=== PATIENT | male | born 1995 | race Caucasian/White ===

== ENCOUNTER 2019-05-25 22:32 | Emergency (ER) | payer OTHER, SELFPAY ==
[2019-05-25 22:33] VITALS: BP 135/82; PULSE 104; RESP 17; TEMP 36.5; O2SAT 98; BMI 26.8
--- NOTE | 2019-05-26 | EKG12_ITS ---
Test Reason : TRAUMA Blood Pressure : / mmHG Vent. Rate : 070 BPM Atrial Rate : 070 BPM P-R Int : 150 ms QRS Dur : 094 ms QT Int : 374 ms P-R-T Axes : 069 046 054 degrees QTc Int : 403 ms Normal sinus rhythm with sinus arrhythmia Normal ECG Confirmed by MATTHEW LAN, JORDAN ([id number]), scientific editor VALENCIA MILAN ([id number]) on 05/28/2019 12:27:25 PM Referred By: ANGEL Confirmed By:KASHIF CASTRO MD
--- NOTE | 2019-05-26 00:01 | CT_ITS ---
STUDY: CT CHEST WITH CONTRAST REASON FOR EXAM: Male, 23 years old. Left rib and back pain after being mauled by a bull RADIATION DOSAGE (If Supplied By Facility): CTDIvol = ( 12.09 ) mGy, DLP = ( 1152.82 ) mGycm TECHNIQUE: Transaxial 2.5 mm imaging was performed following intravenous administration of IV 100mL Isovue-370 100ML. Multiplanar coronal and sagittal images were reformatted. Individualized dose optimization techniques were used for this CT. COMPARISON: None. FINDINGS: There is no demonstrated pneumothorax, contusion or effusion. Azygos vein as a congenital variant. There is no demonstrated pleural abnormality. Normal heart and pericardium. Normal mediastinum. Normal hilar regions. Normal enhanced pulmonary arteries. Normal aorta arch and descending thoracic aorta. Normal osseous structures. Ovoid low attenuation in the anterior superior spleen measures 1.1 x 1.6 x 1 cm and near water density. CT/Chest WITH Contrast IMPRESSION: No acute vascular, parenchymal, visceral or osseous injury. Presumed left splenic cyst or hemangioma is a benign entity. No splenic laceration. Electronically Signed: Shahrzad Pringle MD at 1:37 EST , Service support ,
--- NOTE | 2019-05-26 00:02 | ED.DCSUM_ITS ---
History of Present Illness Chief Complaint: Trauma Informant: Patient Onset: Today Mechanism/Context: Assault Quality of Pain: Aching Current Severity: Moderate Maximum Severity: Severe Narrative: Patient is a 23-year-old male with no significant past medical history presenting with chest pain. Patient states he was bringing in the calf into the barn when he was attacked by a bowl. He states the ball came up from behind him. The patient tried to redirect the ball attacked by grabbing the ball by the horns and was flung into the air and into a wall. He then fell to the ground. Patient was able to crawl away. He denies hitting his head or any loss of consciousness. He was seen by his neighbor who is an ER doctor at [facility]. She recommended he come to the emergency room. He did take approximately 800 mg of ibuprofen before coming in. Patient states he feels about 3 times better than he did initially. He denies any numbness or tingling. He has significant pain on the left side of his chest and his left back. He has shortness of breath related to his chest pain. He states it hurts to take a deep breath. He denies any associated numbness or tingling. He denies any other injuries at this time. Tetanus Immunization: Unknown Past Medical History - Allergies and Home Meds Allergies/Adverse Reactions: Allergies No Known Allergies Allergy (Verified 05/25/19 22:33) Primary Care Physician: Jose Lyons MD [NON-STAFF] - Past Medical History: None Surgical History: noncontributory Smoking Status: Never smoker Review of Systems General: Denies: Chills, Fever, Sweats Eyes: Denies: Visual changes - bilaterally, Diplopia ENT: Denies: Rhinorrhea, Sore throat Cardiovascular: Reports: Chest pain. Denies: Palpitations Respiratory: Reports: Dyspnea. Denies: Cough, Dyspnea on exertion Gastrointestinal: Reports: Nausea. Denies: Abdominal pain, Vomiting, Diarrhea, Melena, Hematochezia Genitourinary: Denies: Dysuria, Hematuria, Frequency Musculoskeletal: Denies: Back pain, Extremity Pain Skin: Reports: Abrasions - back and chest . Denies: Rash, Wounds Neurological: Denies: Headache, Weakness, Numbness Physical Exam Vital Signs/Narrative: Vital Signs Temp Pulse Resp BP Pulse Ox 05/25/19 22:33 97.7 F L 104 H 17 135/82 H 98 Inital Vital Signs reviewed: Yes General: Well nourished, Well developed Head: Normocephalic, Atraumatic Eyes: Perrl, EOMI ENT: TM's clear, No hemotympanum or drainage, No trauma. Negative for: Hemotympanum, Nasal trauma, Nasal septal hematoma Neck: Nontender, Full ROM. Negative for: Spinal Tenderness, Paraspinal Tenderness Cardiovascular: Regular rate, Regular rhythm, No murmurs Respiratory: No distress, CTA bilaterally, Chest tenderness - left posterior chest, midscapular line, - - No chest wall crepitus. Negative for: Retractions Abdomen: Soft, Nontender, Nondistended, Normal bowel sounds. Negative for: Guarding Back: Nontender Extremeties: No deformity, no tenderness over the joints, normal range of motion of the shoulders and hips. Pelvis is stable Skin: Normal color, Trauma - Ecchymosis over left posterior thorax and left anterior flank, - - Ecchymosis diffusely over thoracic and lumbar back in a pattern consistent with an imprint from the floor Neurological: Alert, Oriented x3, Cranial nerves II-XII grossly intact, Normal Strength, Normal Sensation Psychological: Normal affect - Glascow Coma Scale Eye Opening: Spontaneous Motor: Obeys Commands Verbal: Oriented Coma Scale Total: 15 Diagnostic/Tx/Re-eval Clinical Impression(s) from Imaging Studies Chest CT 05/26/19 00:01 IMPRESSION: No acute vascular, parenchymal, visceral or osseous injury. Presumed left splenic cyst or hemangioma is a benign entity. No splenic laceration. Electronically Signed: Shahrzad Pringle MD at 1:37 EST , Service support , Abdomen/Pelvis CT 05/26/19 00:04 IMPRESSION: No acute vascular, parenchymal, visceral or osseous injury. Splenic lesion likely complex cyst or hemangioma. No splenic injury. Mesenteric lymph nodes possible mild mesenteric adenitis versus incidental finding. Degenerative changes. Electronically Signed: Shahrzad Pringle MD at 1:44 EST , Service support , Laboratory Data 05/26/19 05/26/19 05/26/19 00:14 00:14 01:40 WBC 10.7 RBC 5.30 Hgb 15.2 Hct 43.8 MCV 82.6 MCH 28.7 MCHC 34.7 RDW Std Deviation 35.3 RDW Coeff of [place] 11.8 Plt Count 250 MPV 10.3 Immature Gran % (Auto) 0.500 Neut % (Auto) 75.4 H Lymph % (Auto) 12.9 L [place] % (Auto) 10.4 H Eos % (Auto) 0.3 Baso % (Auto) 0.5 Absolute Neuts (auto) 8.1 H Absolute Lymphs (auto) 1.38 Nucleated RBC % 0 Sodium 142 Potassium 3.5 Chloride 110 H Carbon Dioxide 25.0 Anion Gap 7 BUN 20 H Creatinine 1.10 Estim Creat Clear Calc 107.84 Est GFR (MDRD) Af Amer 106 Est GFR (MDRD) Non-Af 88 BUN/Creatinine Ratio 18.2 Glucose 91 Calcium 9.2 Total Bilirubin 0.40 AST 33 ALT 31 Alkaline Phosphatase 71 Troponin I < 0.015 Total Protein 7.0 Albumin 4.1 Globulin 2.9 Albumin/Globulin Ratio 1.4 Urine Color Yellow Urine Clarity Clear Urine pH 6.5 Ur Specific [place] 1.015 Urine Protein Negative Urine Glucose (UA) Normal Urine Ketones Negative Urine Occult Blood Negative Urine Nitrite Negative Urine Bilirubin Negative Urine Urobilinogen Normal Ur Leukocyte Esterase Negative Urine RBC 0 SEEN Urine WBC 0 SEEN Ur Squamous Epith Cells 0-5 SEEN Urine Bacteria 0 SEEN Urine Mucus 0 SEEN - Rhythm Strip Rhythm Strip: Sinus Rhythm Rate: 70 Ectopy: None - EKG Initial EKG Interpretation: Sinus Rhythm, - - Normal sinus rhythm at a rate of 70 Normal intervals Normal axis Normal ST segments - Medical Decision Making Patient is evaluated for injuries sustained after he was attacked by a bull. Patient significant ecchymosis on his abdomen and back. He is complaining of significant shortness of breath and chest wall pain. Patient is high risk for pneumothorax, rib fracture and internal injuries due to his mechanism of injury. Because of this, trauma work-up is initiated. It is grossly negative. Patient does not even have signs of a rib fracture on his CT. Patient is hemodynamically stable. He is offered morphine but declines it. Patient is diagnosed with rib contusions. EKG and troponin are normal. Do not suspect cardiac contusion. No signs of pulmonary contusion on CT. He is counseled on the risk of pneumonia and instructed to take deep breaths throughout the day to help prevent this. Patient is given a course of [place] as well as Motrin for pain control. He is counseled that he will feel biliary sore possibly worse tomorrow. He states he does not need a work note as he works for himself. Patient is counseled on signs symptoms requiring return to emergency room. He verbalizes agreement understand this plan. He is discharged home in stable condition. ED Disposition - Plan for ED Patient: Disposition: Home or Assisted Living Diagnosis: Contusion of rib on left side, Contusion, back Instructions: Chest Wall Contusion Prescriptions: Ibuprofen [Motrin] 600 mg PO Q6H PRN PRN #20 tab PRN Reason: Pain/Inflammation Prescription Printed Hydrocodone Bitart/Apap 5-325 [[place] 5MG-325MG] 1 tab PO Q6H PRN PRN 3 Days #10 tab PRN Reason: Pain Prescription Printed Referrals: Jose Lyons MD [NON-STAFF] - Additional Instructions: You did not have any signs of internal bleeding or broken bones. Return to emergency room if you have difficulty breathing or worsening symptoms. Take medication as needed for pain. Apply ice for bruising. Please follow-up with your primary care doctor. Make sure you rest. You will be very uncomfortable over the next few days as your body heals.
--- NOTE | 2019-05-26 00:04 | CT_ITS ---
STUDY: CT ABDOMEN AND PELVIS WITH CONTRAST REASON FOR EXAM: Male, 23 years old. Left rib and back pain after being mauled by a bull RADIATION DOSAGE (If Supplied By Facility): CTDIvol = ( 12.09 ) mGy, DLP = ( 1152.82 ) mGycm TECHNIQUE: Transaxial images were obtained from the dome of the diaphragm to the symphysis pubis without oral contrast. IV 100mL Isovue-370 100ML was administered. Sagittal and coronal images were reconstructed. Individualized dose optimization techniques were used for this CT. COMPARISON: None. FINDINGS: The visualized lung bases are unremarkable. The visualized portions of the heart are within normal limits. Normal liver. Normal gallbladder and extrahepatic biliary system. Ovoid low attenuation in the anterior superior spleen measures 1.1 x 1.6 x 1 cm and near water density. There is accessory splenic tissue. Normal pancreas. Normal bilateral adrenal glands. Normal right kidney. Normal left kidney. Normal visualized stomach. Normal small intestine. Normal colon. The appendix is visualized and appears normal. Scattered mesenteric lymph nodes. Normal abdominal aorta. Normal inferior vena cava. Normal retroperitoneum. Normal urinary bladder. Normal abdominal wall. Multilevel sclerosed defects in the endplates likely Schmorl's nodes. There is discogenic disease L4-5, mild facet arthropathy. Posterior spurring and discogenic disease L5-S1 causing spinal canal stenosis. CT/Abdomen/Pelvis W IV Cont ONLY IMPRESSION: No acute vascular, parenchymal, visceral or osseous injury. Splenic lesion likely complex cyst or hemangioma. No splenic injury. Mesenteric lymph nodes possible mild mesenteric adenitis versus incidental finding. Degenerative changes. Electronically Signed: Shahrzad Pringle MD at 1:44 EST , Service support ,
--- NOTE | 2019-05-26 00:04 | ED.RN ---
NO OLD EKGS IN MUSE
[2019-05-26 00:24] LABS: Absolute Lymphocyte Count 1.38 X10^3/uL (0.83-4.51); Absolute Neutrophil Count 8.1 X10^3/uL (2.0-7.7); Basophil# 0.05 X10^3/uL; Basophil% 0.5 % (0-1); Eosinophil# 0.03 X10^3/uL; Eosinophils% 0.3 % (0-5); Hematocrit 43.8 % (40-54); Hemoglobin 15.2 g/dL (13.0-16.5); Lymphocyte # 1.38 X10^3/ul (4.0); Lymphocyte % 12.9 % (19-41); Mean Corp Hgb Conc 34.7 g/dL (32-36); Mean Corpuscular Hgb 28.7 pg (27.0-32.0); Mean Corpuscular Volume 82.6 fL (80-94); Mean Platelet Vol. 10.3 fl (6.2-12.0); Monocyte# 1.11 X10^3/uL; Monocyte% 10.4 % (0-10); NRBC Flagged by Analyzer 0 % (0-5); Neutrophil # 8.05 X10^3/uL (2.7-7.7); Neutrophil % 75.4 % (47-70); Platelet Count 250 K/mm3 (150-450); RBC Distribution Width CV 11.8 % (11.6-14.6); RBC Distribution Width SD 35.3 fl (35.1-43.9); White Blood Count 10.7 K/mm3 (4.4-11.0)
[2019-05-26 00:41] LABS: ALB/GLOB Ratio 1.4 RATIO (0.9-2.4); AST(SGOT) 33 U/L (15-37); Alanine Aminotransfer ALT/SGPT 31 U/L (16-61); Albumin, Serum 4.1 g/dL (3.2-5.0); Alkaline Phosphatase 71 U/L (45-117); Anion Gap 7 (5-15); BUN 20 mg/dL (7-18); BUN/Creat Ratio 18.2 RATIO (10-20); Calcium,Total 9.2 mg/dL (8.5-10.1); Chloride 110 mmol/L (98-107); EST Glomerular Filtration Rate 88 mL/min (>60); Est Glom Filt Rate - Afr Amer 106 mL/min (>60); Estimated Creatinine Clearance 107.84 ml/min; Globulin 2.9 g/dL (2.2-4.2); Glucose 91 mg/dL (74-106); Potassium 3.5 mmol/L (3.5-5.1); Sodium Level 142 mmol/L (136-145)
[2019-05-26 01:45] LABS: Bacteria 0 SEEN /hpf (None Seen); Mucous, Urine 0 SEEN /hpf (<or=2+); Red Blood Cells-Urine 0 SEEN /hpf (0-5); White Blood Cells 0 SEEN /hpf (0-5)
[2019-05-26 01:46] VITALS: BP 115/59; PULSE 90; RESP 16; O2SAT 97
[2019-05-26 01:52] LABS: Color, Urine Yellow (Yellow); Glucose, Dipstick Normal (Normal); Ketone-Dipstick Negative (Negative); Leukocyte Esterase-Dipstick Negative /ul (Negative); Nitrite-Dipstick Negative (Negative); Occult Blood-Urine Negative /ul (Negative); Protein-Dipstick Negative (Negative); Specific Gravity, Urine 1.015 (1.002-1.030); Urine Bilirubin Dipstick Negative (Negative); Urine Clarity Clear (Clear); Urine Urobilinogen Normal (Normal); Urine pH 6.5 (5.0 - 8.0)
[2019-05-26 01:58] LABS: Squamous Epithelial Cells - UA 0-5 SEEN /hpf (0-5)
[2019-05-26 02:10] VITALS: BP 115/59; PULSE 90; RESP 15; O2SAT 97
[2019-05-26 03:25] VITALS: BP 107/59; PULSE 65; RESP 15; O2SAT 99
== END 2019-05-26 03:29 | disposition home or self-care (01) ==
PROVIDERS: Emergency Provider Emergency Medicine
DX: S20.212A Contusion of left front wall of thorax, initial encounter (principal); S20.222A Contusion of left back wall of thorax, initial encounter; D73.89 Other diseases of spleen; W55.22XA Struck by cow, initial encounter; Y93.9 Activity, unspecified; Y92.89 Other specified places as the place of occurrence of the external cause; Y99.9 Unspecified external cause status
CPT/HCPCS: 71260; 74177; 80053; 81001; 84484; 85025; 90471; 90715; 93005; 96374; 99284; Q9967; A4216